=== PATIENT | male | born 1990 | race Hispanic/Latino ===

== ENCOUNTER 2017-06-16 14:35 | Emergency (ER) | payer OTHER ==
[2017-06-16 14:39] VITALS: BP 114/61; PULSE 60; RESP 16; TEMP 97.5; O2SAT 99
--- NOTE | 2017-06-16 15:41 | ED PDOC ---
HPI: General Adult Time Seen by Provider: 06/16/17 15:05 Chief Complaint (Nursing): Abnormal Skin Integrity Chief Complaint (Provider): Lesion History Per: Patient History/Exam Limitations: no limitations Current Symptoms Are (Timing): Still Present Additional Complaint(s): 27 year old male presents to the emergency department with a complaint of a scratch that he noted on his finger about 30 hours ago. Patient was trying to express fluids from it with minimal clear drainage. Today he noticed redness that was spreading and was seen at the urgent case and advised to visit the emergency department. Patient does not remember how he got the lesions and does not remember car biting that region. Tetanus shot is up to date (3 years ago). Past Medical History Reviewed: Historical Data, Nursing Documentation, Vital Signs Vital Signs: Last Vital Signs Temp 97.5 F L 06/16/17 14:37 Pulse 60 06/16/17 14:37 Resp 16 06/16/17 14:37 BP 114/61 06/16/17 14:37 Pulse Ox 99 06/16/17 15:44 - Medical History PMH: No Chronic Diseases - Surgical History Surgical History: No Surg Hx - Family History Family History: States: Unknown Family Hx - Home Medications Home Medications: Ambulatory Orders Medication Instructions Recorded Ibuprofen [Motrin] 600 mg PO Q8 #20 tab 12/31/14 Naproxen [Naprosyn] 500 mg PO BID PRN #15 tablet 06/16/17 Sulfamethoxazole/Trimethoprim 1 tab PO BID #14 tab 06/16/17 [Bactrim DS 800 mg-160 mg] - Allergies Allergies/Adverse Reactions: Allergies Allergy/AdvReac Type Severity Reaction Status Date / Time No Known Allergies Allergy Verified 12/31/14 21:33 Review of Systems ROS Statement: Except As Marked, All Systems Reviewed And Found Negative (As per HPI, otherwise negative) Constitutional: Negative for: Fever Skin: Positive for: Lesions (to the second digit of the left hand with redness) Physical Exam - Reviewed Nursing Documentation Reviewed: Yes Vital Signs Reviewed: Yes - Physical Exam Appears: Positive for: No Acute Distress Head Exam: Positive for: NORMAL INSPECTION Skin: Positive for: Normal Color, Warm, Dry Extremity: Positive for: Normal ROM (Lesion noted on the right second digit posterior region with surrounding induration and erythema to the wrist with full ROM. ), Tenderness (Minimal tenderness at the lesion region. ), Capillary Refill (Less than 2 second capillary refill. Sensation intact. ). Negative for : Other (No tenderness over the flexor tendon. No fluctuance) Neurologic/Psych: Positive for: Alert, Oriented (x3) - Laboratory Results Result Diagrams: 06/16/17 15:50 06/16/17 16:50 - ECG O2 Sat by Pulse Oximetry: 99 (RA) Pulse Ox Interpretation: Normal Medical Decision Making Medical Decision Making: Time: 1521 Initial Impression: Cellulitis Initial Plan: --CMP --CBC w. diff --PTT & Prothrombin --Toradol 15 mg IV --Vancomycin 1 g IVPB --Blood culture --Reevaluation Scribe Attestation: Documented by Ivette Tipton, acting as a scribe for Mehreen Clements MD. Provider Scribe Attestation: All medical record entries made by the Scribe were at my direction and personally dictated by me. I have reviewed the chart and agree that the record accurately reflects my personal performance of the history, physical exam, medical decision making, and the department course for this patient. I have also personally directed, reviewed, and agree with the discharge instructions and disposition. Disposition - Clinical Impression Clinical Impression: Cellulitis of hand - Disposition Disposition: Routine/Home Disposition Time: 17:46 Condition: STABLE Additional Instructions: RETURN TO ED IN 48 HOURS FOR REEVALUATION. Prescriptions: Naproxen [Naprosyn] 500 mg PO BID PRN #15 tablet PRN Reason: Pain, Moderate (4-7) Sulfamethoxazole/Trimethoprim [Bactrim DS 800 mg-160 mg] 1 tab PO BID #14 tab Instructions: Cellulitis (ED) Forms: [employer] ([employer])
[2017-06-16 16:17] LABS: BASO % 0.3 % (0.0-2.0); EOS # 0.2 K/uL (0.0-0.7); EOS % 3.9 % (0.0-4.0); HEMOGLOBIN 13.7 g/dL (12.0-18.0); LYMPH # 1.3 K/uL (1.0-4.3); LYMPH % 25.8 % (20.0-40.0); MEAN CELL VOLUME 86.5 fl (80.0-94.0); MEAN CORPUSCULAR HEMOGLOBIN 29.6 pg (27.0-31.0); MEAN CORPUSCULAR HGB CONC 34.2 g/dL (33.0-37.0); MEAN PLATELET VOLUME 8.4 fl (7.2-11.7); MONO # 0.8 K/uL (0.0-0.8); MONO % 15.7 % (0.0-10.0); NEUT # 2.7 K/uL (1.8-7.0); NEUT % 54.3 % (50.0-75.0); NRBC % 0.1 % (0.0-0.0); RBC 4.62 Mil/uL (4.40-5.90); RED CELL DISTRIBUTION WIDTH 12.9 % (11.5-14.5)
[2017-06-16 16:45] LABS: INR 1.1 (0.9-1.2); PROTHROMBIN TIME 12.1 Seconds (9.8-13.1)
[2017-06-16 17:03] LABS: ALB/GLOB RATIO 1.6 (1.0-2.1); ALBUMIN 4.2 g/dL (3.5-5.0); ALT/SGPT 56 U/L (21-72); AST/SGOT 39 U/L (17-59); BLOOD UREA NITROGEN 22 mg/dl (9-20); GFR AFRICAN-AMERICAN > 60; GFR NON-AFRICAN AMERICAN > 60
== END 2017-06-16 18:11 | disposition home or self-care (01) ==
LOC: H.ER 14:35
DX: L03.012 Cellulitis of left finger (principal)
CPT/HCPCS: 80053; 85025; 85610; 85730; 87040; 96365; 99283; J1885